=== PATIENT | male | born 1955 | race Caucasian/White ===

== ENCOUNTER 2019-01-11 09:32 | Emergency (ER) | payer OTHER ==
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
[2019-01-11 11:19] VITALS: BP 179/77; TEMP 98.3; O2SAT 100
== END 2019-01-11 10:54 | disposition home or self-care (01) ==
LOC: ER 09:32
DX: S00.01XA Abrasion of scalp, initial encounter (principal); S00.411A Abrasion of right ear, initial encounter; V43.52XA Car driver injured in collision with other type car in traffic accident, initial encounter; M54.2 Cervicalgia
CPT/HCPCS: 70450; 72125; 99284

== ENCOUNTER 2021-05-22 16:22 | Inpatient (IN) | payer OTHER ==
[2021-05-22] MEDS ORDERED: TETANUS & DIPHTHERIA TOX,ADULT 0.5 ML VIAL ONE (16:39)
[2021-05-22] MEDS ORDERED: BUPIVACAINE 0.5% PF 10 ML VIAL ONE (16:41)
[2021-05-22] MEDS ORDERED: LIDOCAINE 1% 20 ML MDV ONE (16:41)
--- NOTE | 2021-05-22 17:07 | RAD REPORT ---
EXAM DESCRIPTION: RAD - Hand Right 3 View - 05/22/2021 5:00 pm CLINICAL HISTORY: PAIN COMPARISON: No comparisons FINDINGS: Partial amputation of the fourth and fifth digits at the level of the distal phalanges. Th ere is also a fracture at the distal phalanx at the articular surface. No dislocation. No radiopaque foreign bodies . IMPRESSION: Partial amputation of the fourth and fifth distal phalanges. In addition, there is a fra cture at the base of the fifth distal phalanx with intra-articular extension.
[2021-05-22] MEDS ORDERED: CEFAZOLIN SODIUM 1 GM/VIAL ONE (17:38)
[2021-05-22] MEDS ORDERED: ONDANSETRON 4 MG/2 ML VIAL ONE (17:38)
[2021-05-22] MEDS ORDERED: MORPHINE 4 MG/ML SYR ONE (17:38)
[2021-05-22] MEDS ORDERED: NA CHLORIDE 0.9% 100 ML ONE (17:40)
[2021-05-22 17:52] LABS: Absolute Lymphocytes (CBC) 1.4 K/uL (0.7-4.9); Basophils % 0.7 % (0-1.3); Hematocrit 38.9 % (39.6-49.0); Lymphocytes % 14.4 % (15.3-44.8); MPV 9.2 fL (7.6-11.3); RBC Red Blood Cell Count 4.34 M/uL (4.33-5.43)
--- NOTE | 2021-05-22 17:57 | RAD REPORT ---
EXAM DESCRIPTION: RAD - Chest Single View - 05/22/2021 5:49 pm CLINICAL HISTORY: pre-op COMPARISON: CHEST PA AND LAT 2 VIEW dated 09/27/2013 FINDINGS: Lines: None. Lungs: No evidence of edema or pneumonia. Pleural: No significant pleural effusions or pneumothorax. Cardiac: The heart size is within normal limits. Bones: No acute fractures. Other: IMPRESSION: No acute cardiopulmonary disease.
[2021-05-22 18:02] LABS: Potassium 3.6 mmol/L (3.5-5.1)
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
--- NOTE | 2021-05-22 18:25 | EDPHYS ---
Physician Documentation [facility] Name: Wai Montejo Age: 65 yrs Sex: Male : 1955 Arrival Date: 05/22/2021 Time: 16:23 Bed 26 Private MD: Syed Love ED Physician Crhis Bingham HPI: 05/22 16:49 This 65 yrs old Male presents to ER via Ambulatory with complaints of Finger kb Injury. 16:49 The patient has not recently seen a physician. kb 16:49 The patient or guardian reports decreased range of motion, injury, a laceration, kb irregular, pain, swelling, tenderness. The complaints affect the dorsal aspect of distal phalanx of right ring finger, dorsal aspect of middle phalanx of right ring finger, dorsal aspect of distal phalanx of right little finger, palmar aspect of distal phalanx of right little finger, palmar aspect of middle phalanx of right little finger, palmar aspect of distal phalanx of right ring finger and palmar aspect of middle phalanx of right ring finger. Context: The problem was sustained at home, resulted from a crush injury, two pieces of metal. Onset: The symptoms/episode began/occurred just prior to arrival. Modifying factors: The symptoms are alleviated by nothing, the symptoms are aggravated by movement. Associated signs and symptoms: The patient has no apparent associated signs or symptoms. Severity of symptoms: At their worst the symptoms were severe, in the emergency department the symptoms are unchanged. The patient has not experienced similar symptoms in the past. Historical: - Allergies: 16:32 No Known Allergies; ll1 - PMHx: 16:32 Hypertensive disorder; Hypercholesterolemia; ll1 - PSHx: 16:32 None; ll1 - Immunization history:: Client reports having NOT received the Covid vaccine. Last tetanus immunization: unknown. - Social history:: Smoking status: Patient denies any tobacco usage or history of. ROS: 16:48 Constitutional: Negative for fever, chills, and weight loss. kb 16:48 MS/extremity: Positive for injury or acute deformity, decreased range of motion, ecchymosis, laceration, pain, swelling, of the right ring finger and right little finger. 16:48 All other systems are negative. Exam: 18:25 Constitutional: This is a well developed, well nourished patient who is awake, alert, kb and in no acute distress. Head/Face: Normocephalic, atraumatic. ENT: Moist Mucous membranes Respiratory: Respirations even and unlabored. No increased work of breathing, no retractions or nasal flaring. Neuro: Awake and alert, GCS 15, oriented to person, place, time, and situation. Moves all extremities. Normal gait. Psych: Awake, alert, with orientation to person, place and time. Behavior, mood, and affect are within normal limits. 18:25 Musculoskeletal/extremity: Extremities: grossly normal except: noted in the dorsal aspect of distal phalanx of right ring finger, dorsal aspect of distal phalanx of right little finger and palmar aspect of distal phalanx of right ring finger: decreased ROM, laceration, pain, swelling, tenderness, ROM: limited active range of motion, Circulation is intact in all extremities. Sensation intact. 18:25 Skin: injury, laceration(s), the wound is approximately 4 cm(s), of the dorsal aspect of distal phalanx of right ring finger and palmar aspect of distal phalanx of right ring finger, the second wound is approximately 2 cm(s), of the dorsal aspect of distal phalanx of right ring finger, that can be described as clean, no foreign body, irregular, with mild bleeding. Vital Signs: 16:33 BP 147 / 71; Pulse 66; Resp 17; Temp 98.4; Pulse Ox 97% ; Weight 123.38 kg; Height 6 ll1 ft. 0 in. (182.88 cm); Pain 10/10; 17:51 BP 130 / 60; Pulse 79; Resp 16; Pulse Ox 97% ; jh5 16:33 Body Mass Index 36.89 (123.38 kg, 182.88 cm) ll1 Procedures: 16:47 Nerve block: (digital) of palmar aspect of proximal phalanx of right ring finger kb Medication: Lidocaine 1% without epinephrine Marcaine 0.5%, Amount: 5 mls were injected, Effect: the patient has resolution of the pain, Set up for procedure. Performed by Mary IVAN Patient tolerated well. 16:47 Nerve block: (digital) of palmar aspect of proximal phalanx of right little finger kb Medication: Lidocaine 1% without epinephrine Marcaine 0.5%, Amount: 5 mls were injected, Effect: the patient has resolution of the pain, Set up for procedure. Performed by Mary IVAN Patient tolerated well. Laceration: 20:01 Wound Repair of 4cm ( 1.6in ) subcutaneous laceration to dorsal aspect of distal kb phalanx of right ring finger and palmar aspect of distal phalanx of right ring finger. Irregularly shaped.. Distal neuro/vascular/tendon intact. Anesthesia: Digital block administered with 1% lidocaine. Skin closed with 6 4-0 Prolene using simple sutures and sterile technique. Patient tolerated well. MDM: 16:26 Patient medically screened. kb 16:48 Data reviewed: vital signs, nurses notes. Data interpreted: Pulse oximetry: on room air kb is 97 %. Interpretation: normal. 18:22 Physician consultation: Wai Moser MD was contacted at 17:15, regarding admission, kb to the medical/surgical unit. patient's condition, and will see patient in inpatient room, tomorrow. 18:23 Counseling: I had a detailed discussion with the patient and/or guardian regarding: the kb historical points, exam findings, and any diagnostic results supporting the discharge/admit diagnosis, radiology results, the need for further work-up and treatment in the hospital. Physician consultation: Chandu NICOLE was contacted at 18:24, regarding admission, to the medical/surgical unit. patient's condition, and will see patient in ED, shortly. 05/22 17:17 Order name: CBC with Diff; Complete Time: 18:00 kb 05/22 17:17 Order name: Basic Metabolic Panel; Complete Time: 18:04 kb 05/22 18:56 Order name: COVID-19 SARS RT PCR (Document "Date of Onset" if Symptomatic); Complete bd Time: 20:39 05/23 06:41 Order name: CBC with Automated Diff EDMS 05/23 07:18 Order name: Comprehensive Metabolic Panel EDMS 05/23 07:18 Order name: Phosphorus EDMS 05/23 07:18 Order name: Lipid Profile EDMS 05/23 07:18 Order name: T4 Free EDMS 05/23 07:18 Order name: Magnesium EDMS 05/23 07:18 Order name: Thyroid Stimulating Hormone EDMS 05/23 07:18 Order name: Transferrin Sat/Iron Binding EDMS 05/23 07:18 Order name: Ferritin EDMS 05/23 07:18 Order name: Folic Acid, (Folate) EDDE 05/23 07:18 Order name: Vitamin B12 Level [facility] 05/22 16:34 Order name: Hand Right 3 View XRAY; Complete Time: 17:09 kb 05/22 17:17 Order name: IV Start; Complete Time: 17:36 kb 05/22 17:17 Order name: EKG; Complete Time: 17:18 kb 05/22 17:17 Order name: EKG - Nurse/Tech; Complete Time: 18:00 kb 05/22 17:17 Order name: Chest Single View XRAY; Complete Time: 18:00 kb 05/22 18:43 Order name: CONS Physician Consult; Complete Time: 19:52 EDDE 05/22 18:45 Order name: Dressing - Wound; Complete Time: 19:51 kb 05/22 18:45 Order name: Gloves, Sterile; Complete Time: 19:52 kb 05/22 18:45 Order name: Prolene, Sutures; Complete Time: 19:52 kb 05/22 18:45 Order name: Setup Suture Tray; Complete Time: 19:52 kb Administered Medications: 16:43 Drug: Tetanus-Diphtheria Toxoid Adult 0.5 ml {Assisted Living Manager: flatev. Exp: jh5 11/28/2022. Lot #: [id number]. } Route: IM; Site: left deltoid; 16:43 Drug: Marcaine (bupivacaine) (0.5 %) 1 vials Volume: 10 ml; Route: Infiltration; 5 16:43 Drug: Lidocaine (1 %) 1 vials Volume: 20 ml; Route: Infiltration; 5 17:43 Drug: Ancef (cefazolin) 1 grams Route: IVPB; Site: left antecubital; 5 17:43 Drug: morphine 4 mg Route: IVP; Site: left antecubital; 5 17:43 Drug: Zofran (Ondansetron) 4 mg Route: IVP; Site: left antecubital; 5 Disposition: 05/23 09:25 Co-signature as Attending Physician, Chris Bingham MD I agree with the assessment and rn plan of care. Attestation: The patient's history, exam findings, diagnostics, and a summary of any interventions or procedures was reviewed in detail with Mary IVAN. Disposition Summary: 05/22/21 18:25 Hospitalization Ordered Hospitalization Status: Observation kb Provider: Brian Hyman Condition: Stable kb Problem: new kb Symptoms: are unchanged kb Bed/Room Type: Standard kb Location: [facility] ER HOLD(05/23/21 09:07) iw Room Assignment: (05/23/21 09:07) iw Diagnosis - Partial amputation of forth and fifth digits on right hand kb Forms: - Medication Reconciliation Form kb - SBAR form kb Signatures: Dispatcher [employer] EDMary Crawford, [place]-Rolo SOLE BUFFER-Tiesha Patino RN RN dw Renita Vera RN RN iw Chris Bingham MD MD rn Garcia, Cindy, RN RN cg Lewis, Lynsay, RN RN [facility] Magdalena Arvizu RN RN jh5 Corrections: (The following items were deleted from the chart) 05/22 16:33 16:32 PMHx: None; ll1 ll1 18:27 16:49 The complaints affect the dorsal aspect of middle phalanx of right middle finger kb and dorsal aspect of distal phalanx of right middle finger and dorsal aspect of middle phalanx of right index finger and dorsal aspect of distal phalanx of right index finger, kb 18:28 16:48 MS/extremity: Positive for injury or acute deformity, decreased range of motion, kb ecchymosis, laceration, pain, swelling, of the dorsal aspect of distal phalanx of right index finger, dorsal aspect of middle phalanx of right index finger, dorsal aspect of distal phalanx of right middle finger and dorsal aspect of middle phalanx of right middle finger, kb 22:45 18:25 Telemetry/MedSurg (observation) kb cg 22:45 18:25 kb cg 05/23 07:33 05/22 22:45 [facility] ER HOLD cg dw 05/23 07:33 05/22 22:45 ERHOLD- cg dw 05/23 09:07 07:33 Telemetry/MedSurg (observation) dw iw : 07:33 221 dw iw
--- NOTE | 2021-05-22 19:40 | P.HP ---
Certification for Inpatient Patient admitted to: Inpatient With expected LOS: <2 Midnights Patient will require the following post-hospital care: None Practitioner: I am a practitioner with admitting privileges, knowledge of patient current condition, hospital course, and medical plan of care. Services: Services provided to patient in accordance with Admission requirements found in Title 42 Section 412.3 of the Code of Federal Regulations Patient History Date of Service: 05/22/21 Primary Care Provider: Kate Reason for admission: partial amputation History of Present Illness: Mr. Montejo is a 65 yo M with HTN and HLD who presents with partial amputations of fourth and fifth distal phalanges. He was unloaidng a bulldozer off of his trailer and when he went to flip the pedestal, his hand got caught underneath the ramp. He initially had severe pain but now after receiving 4mg of morphine, his pain is well controlled. Hand surgery consulted and plans to take to the OR in the morning. Hand XRAY IMPRESSION: Partial amputation of the fourth and fifth distal phalanges. In addition, there is a fracture at the base of the fifth distal phalanx with intra-articular extension. Allergies No Known Allergies Allergy (Verified 09/27/13 14:59) Home Medications: Ciprofloxacin HCl [Cipro] 500 mg PO BID #20 tablet 10/01/13 Hydrocodone 7.5/APAP 325 [[place] 7.5/325 mg*] 1 tab PO Q4H PRN #40 tab 10/01/13 - Past Medical/Surgical History Diabetic: No -: HTN -: HLD -: tonsillectomy -: Left eye sx -: kristin - Family History Family History: Reviewed- Non-Contributory - Social History Smoking Status: Never smoker Alcohol use: Yes CD- Drugs: No Caffeine use: No Place of Residence: Home Review of Systems 10-point ROS is otherwise unremarkable Musculoskeletal: Hand Pain Physical Examination - Physical Exam General: Alert, In no apparent distress HEENT: Atraumatic, PERRLA, Mucous membr. moist/pink, EOMI, Sclerae nonicteric Neck: Supple, 2+ carotid pulse no bruit, No LAD, Without JVD or thyroid abnormality Respiratory: Clear to auscultation bilaterally, Normal air movement Cardiovascular: Regular rate/rhythm, Normal S1 S2 Gastrointestinal: Normal bowel sounds, No tenderness Musculoskeletal: Swelling, Tenderness, Other (crush injury, fourth and fifth digit swolllen, nail bed discolored) Integumentary: Tenderness/swelling Neurological: Normal gait, Normal speech, Normal strength at 5/5 x4 extr, Normal tone, Normal affect Lymphatics: No axilla or inguinal lymphadenopathy - Studies Laboratory Data (last 24 hrs) 05/22/21 17:25: Sodium 141, Potassium 3.6, BUN 19 H, Creatinine 1.07, Glucose 119 H 05/22/21 17:25: WBC 9.40, Hgb 12.8 L, Hct 38.9 L, Plt Count 215 Assessment and Plan - Problems (Diagnosis) (1) Crush injury of hand Current Visit: Yes Status: Acute Qualifiers: Encounter type: initial encounter Laterality: right Qualified Code(s): S67.21XA - Crushing injury of right hand, initial encounter (2) HTN (hypertension) Current Visit: Yes Status: Chronic Qualifiers: Hypertension type: primary hypertension Qualified Code(s): I10 - Essential (primary) hypertension (3) HLD (hyperlipidemia) Current Visit: Yes Status: Chronic Qualifiers: Hyperlipidemia type: unspecified Qualified Code(s): E78.5 - Hyperlipidemia, unspecified - Plan hand surgery consulted NPO after midnight IVF hydration, prophylactic IV antibiotics pain management as needed hydralazine PRN for BP spikes cholesterol stable, continue to monitor SCDs Discharge Plan: Home Plan to discharge in: 48 Hours - Advance Directives Does patient have a Living Will: No Does patient have a Durable POA for Healthcare: No - Code Status/Comfort Care Code Status Assessed: Yes (full code ) Critical Care: No Time Spent Managing Pts Care (In Minutes): 70
[2021-05-22 20:27] VITALS: BMI 36.8
[2021-05-22] MEDS ORDERED: ONDANSETRON 4 MG/2 ML VIAL IV PRN (20:32)
[2021-05-22] MEDS ORDERED: ACETAMINOPHEN 500 MG TAB PO PRN (20:32)
[2021-05-22] MEDS ORDERED: HYDRALAZINE HCL 20 MG/ML VIAL IV PRN (20:32)
[2021-05-22] MEDS ORDERED: MORPHINE 4 MG/ML SYR IV PRN (20:32)
[2021-05-23] MEDS ORDERED: NA CHLORIDE 0.9% 1,000 ML IV SCH
[2021-05-23] MEDS ORDERED: NA CHLORIDE 0.9% 1,000 ML ONE (00:25)
[2021-05-23] MEDS ORDERED: CEFAZOLIN SODIUM 1 GM/VIAL ONE (00:25)
[2021-05-23] MEDS ORDERED: NA CHLORIDE 0.9% 100 ML ONE (00:25)
[2021-05-23] MEDS ORDERED: CEFAZOLIN/NS 1gm 1 GM/50 ML BAG IVPB SCH (02:00)
[2021-05-23] MEDS ORDERED: MORPHINE 4 MG/ML SYR ONE (04:41)
[2021-05-23 06:40] LABS: Absolute Lymphocytes (CBC) 1.8 K/uL (0.7-4.9); Basophils % 0.6 % (0-1.3); Hematocrit 38.2 % (39.6-49.0); Lymphocytes % 21.6 % (15.3-44.8); MPV 9.3 fL (7.6-11.3); RBC Red Blood Cell Count 4.27 M/uL (4.33-5.43)
[2021-05-23 07:18] LABS: ALT/SGPT 51 U/L (12-78); AST/SGOT 24 U/L (15-37); Albumin 3.2 g/dL (3.4-5.0); Alkaline Phosphatase 103 U/L (45-117); BUN Blood Urea Nitrogen 15 mg/dL (7-18); Bicarbonate 26 mmol/L (21-32); Bilirubin Total 0.5 mg/dL (0.2-1.0); Ferritin 400.1 ng/mL (26-388); Folic Acid, (Folate) 9.7 ng/mL (3.1-17.5); Glucose Level 96 mg/dL (74-106); HDL Cholesterol 27 mg/dL (40-60); LDL Cholesterol, Calculated 53 (<130); Magnesium 2.1 mg/dL (1.8-2.4); Phosphorus 3.1 mg/dL (2.5-4.9); Potassium 3.7 mmol/L (3.5-5.1); Protein, Total 6.3 g/dL (6.4-8.2); Sodium Level 141 mmol/L (136-145); Transferrin 210 mg/dL (200-360)
[2021-05-23] MEDS ORDERED: LIDOCAINE 1% MPF 5 ML VIAL ONE ×2 (07:47→08:20)
[2021-05-23] MEDS ORDERED: NS 0.9% VIAL 0 ML ONE (07:47)
[2021-05-23] MEDS ORDERED: dexAMETHasone 10 MG/ML VIAL ONE ×3 (07:48→08:56)
[2021-05-23] MEDS ORDERED: MIDAZOLAM HCL 2 MG/2 ML INJ ONE ×2 (07:48→08:39)
[2021-05-23] MEDS ORDERED: ROPLVACAINE HCL 0 ML ONE (07:48)
[2021-05-23] MEDS ORDERED: FENTANYL CITR 100 MCG/2 ML ONE ×2 (07:48→08:38)
[2021-05-23] MEDS ORDERED: CEFAZOLIN/NS 1gm 1 GM/50 ML BAG ONE (08:18)
[2021-05-23] MEDS ORDERED: BUPIVACAINE 0.5% PF 10 ML VIAL ONE (08:21)
[2021-05-23] MEDS ORDERED: propofoL 200 MG/20 ML VIAL IV ONE (08:38)
[2021-05-23] MEDS ORDERED: LIDOCAINE 2% MPF 5 ML VIAL ONE (08:38)
[2021-05-23] MEDS ORDERED: ONDANSETRON 4 MG/2 ML VIAL ONE (08:41)
[2021-05-23] MEDS ORDERED: KETOROLAC 30 MG/ML INJ ONE (08:57)
[2021-05-23] MEDS ORDERED: EPHEDRINE SULF 50 MG/ML VIAL ONE (09:30)
[2021-05-23] MEDS ORDERED: Ringers Lactate 1,000 ML IV ONE (09:49)
--- NOTE | 2021-05-23 10:31 | RAD REPORT ---
EXAM DESCRIPTION: RAD - Hand Right 2 View - 05/23/2021 10:16 am CLINICAL HISTORY: Phalanges fracture FINDINGS: Fluoroscopy time 0.1 minute. Three fluoroscopic spot images obtained. Pins have been place d into the fourth and fifth phalanges Surgery performed by Dr. Moser
--- NOTE | 2021-05-23 11:45 | OP ---
Surgeon: Wai Moser MD Preoperative Diagnosis: Open fractures of the distal phalanx of the ring and little fingers. Postoperative Diagnosis: Open fractures of the distal phalanx of the ring and little fingers. Procedure Performed: Open reduction and internal fixation of distal phalanx of the right ring finger , arthrodesis of the right little finger, nailbed repair of ring and little. Simple closure, 3 cm of little, 6 cm of ring, splints x2. Anesthesia: General. Procedure In Detail: After satisfactory induction of general anesthesia, right arm was prepped with Betadine scrub and Betadine paint. Dry sterile drapes were applied in the usual manner. The arm was elevated, exsanguinated with an Esmarch, tourniquet inflated to 250 mmHg. Hand was placed on a roll lock table. A periosteal elevator was used to remove the nail plates. The ring finger was approach ed first. After debridement of skin edges, the wounds were then jet lavage and irrigated with 3 L of dilute Betadine solution. The ring finger had a K-wire passed from proximal distal through the frac ture fragment, then distal to proximal, impaled to the distal phalanx and arthrodesis of DIP. C-arm revealed excellent reduction. Attention was then turned to the little finger. The little finger was dislocating volarly. Part of the articular surface was through the fracture. K-wire was placed thr ough the distal phalanx and then used to impale the DIP, reducing in proper anatomic position. The n ailbeds were repaired with 5-0 PDS or horizontal mattress with 5-0 Prolene with pull-ups. Skin was c losed with simple 5-0 Prolene. Dressed with Xeroform, 2-inch Carolin, and a little finger splint holdi ng PIP and DIP in extension. The patient tolerated the procedure well and returned to Recovery. GH/MODL Voice ID: [id number] Report ID: [id number]
[2021-05-23] MEDS ORDERED: POTASSIUM CL SA 10 MEQ TAB PO ONE (12:00)
[2021-05-23 12:55] VITALS: BP 138/71; TEMP 97; O2SAT 98
--- NOTE | 2021-05-23 20:10 | P.DS ---
Admission Date: 05/22/21 Discharge Date: 05/23/21 Primary Care Provider: Kate Disposition: ROUTINE DISCHARGE Reason for Admission: partial amputation Brief History of Present Illness: Mr. Montejo is a 65 yo M with HTN and HLD who presented with partial amputations of fourth and fifth distal phalanges. He was unloaidng a bulldozer off of his trailer and when he went to flip the pedestal, his hand got caught underneath the ramp. Hand X-ray showed partial amputation of the fourth and fifth distal phalanges. In addition, a fracture at the base of the fifth distal phalanx with intra-articular extension. Hand surgery consulted and patient admitted for further management. Hospital Course: Patient seen by Dr. Moser who performed open reduction and internal fixation of distal phalanx of the right ring finger, arthrodesis of the right little finger, nailbed repair of ring and little. Simple closure, 3 cm of little, 6 cm of ring, splints x2. Patient discharged to home after surgery by Dr. Moser. Vital Signs/Physical Exam: Temp Pulse Resp BP Pulse Ox 97.0 F 76 18 138/71 96 05/23/21 11:56 05/23/21 11:56 05/23/21 11:56 05/23/21 11:56 05/23/21 07:53 Laboratory Data at Discharge: WBC 8.40 K/uL (4.3-10.9) 05/23/21 06:30 Hgb 12.5 g/dL (13.6-17.9) L 05/23/21 06:30 Hct 38.2 % (39.6-49.0) L 05/23/21 06:30 Plt Count 220 K/uL (152-406) 05/23/21 06:30 Sodium 141 mmol/L (136-145) 05/23/21 06:30 Potassium 3.7 mmol/L (3.5-5.1) 05/23/21 06:30 BUN 15 mg/dL (7-18) 05/23/21 06:30 Creatinine 0.83 mg/dL (0.55-1.3) 05/23/21 06:30 Glucose 96 mg/dL (74-106) 05/23/21 06:30 Phosphorus 3.1 mg/dL (2.5-4.9) 05/23/21 06:30 Magnesium 2.1 mg/dL (1.8-2.4) 05/23/21 06:30 Total Bilirubin 0.5 mg/dL (0.2-1.0) 05/23/21 06:30 AST 24 U/L (15-37) 05/23/21 06:30 ALT 51 U/L (12-78) 05/23/21 06:30 Alkaline Phosphatase 103 U/L (45-117) 05/23/21 06:30 Triglycerides 101 mg/dL (<150) 05/23/21 06:30 Cholesterol 100 mg/dL (<200) 05/23/21 06:30 HDL Cholesterol 27 mg/dL (40-60) L 05/23/21 06:30 Cholesterol/HDL Ratio 3.70 05/23/21 06:30 Home Medications: Ciprofloxacin HCl [Cipro] 500 mg PO BID #20 tablet 10/01/13 Hydrocodone 7.5/APAP 325 [[place] 7.5/325 mg*] 1 tab PO Q4H PRN #40 tab 10/01/13 Followup: Syed Love MD [Primary Care Provider] -
== END 2021-05-23 11:56 | disposition home or self-care (01) | DRG 514 ==
LOC: ER 16:22 → ERHOLD 19:07
PROVIDERS: ADMIT Internal Medicine; ATTEND Internal Medicine
PROC: 0RG Upper Joints, Fusion (ICD-10-PCS; 2021-05-23)
PROC: 0HQQXZZ Repair Finger Nail, External Approach (ICD-10-PCS; 2021-05-23)
PROC: 0PST04Z Reposition Right Finger Phalanx with Internal Fixation Device, Open Approach (ICD-10-PCS; principal; 2021-05-23 14:30)
DX: S62.634B Displaced fracture of distal phalanx of right ring finger, initial encounter for open fracture (principal); S62.636B Displaced fracture of distal phalanx of right little finger, initial encounter for open fracture; W23.0XXA Caught, crushed, jammed, or pinched between moving objects, initial encounter; Y92.9 Unspecified place or not applicable; I10 Essential (primary) hypertension; E78.5 Hyperlipidemia, unspecified; Z20.822 Contact with and (suspected) exposure to COVID-19
CPT/HCPCS: 36415; 64450; 71045; 80048; 80053; 80061; 82607; 82728; 82746; 83540; 83735; 84100; 84439; 84443; 84466; 85025; 90471; 90714; 93005; 94760; 96374; 96375; 99285; J0690; J1100; J2250; J2405; J2704; J2795; J3010; J7030; J7120; U0003

== ENCOUNTER 2021-06-06 09:32 | Day surgery (SDC) | payer OTHER ==
[2021-06-05 16:11] LABS: Urine Appearance CLEAR (Clear); Urine Color YELLOW (Yellow)
[2021-06-05 16:12] LABS: Urine Bilirubin NEGATIVE (Negative); Urine Blood NEGATIVE (Negative); Urine Glucose Trace (Negative); Urine Microscopic Reflex NO UMIC; Urine Protein NEGATIVE (Negative); Urine Specific Gravity >=1.030 (1.005-1.030); Urine pH 5.5 (5.0-7.0)
[2021-06-06] MEDS ORDERED: Ringers Lactate 1,000 ML IV ONE ×2 (09:38→15:12)
[2021-06-06] MEDS ORDERED: CEFAZOLIN/NS 1gm 1 GM/50 ML BAG ONE (09:38)
[2021-06-06] MEDS ORDERED: ACETAMINOPHEN 500 MG TAB ONE (12:49)
[2021-06-06] MEDS ORDERED: CELECOXIB 100 MG CAPSULE ONE (12:49)
[2021-06-06] MEDS ORDERED: LIDOCAINE 2% MPF 5 ML VIAL ONE (13:29)
[2021-06-06] MEDS ORDERED: KETOROLAC 30 MG/ML INJ ONE (13:29)
[2021-06-06] MEDS ORDERED: FENTANYL CITR 100 MCG/2 ML ONE (13:29)
[2021-06-06] MEDS ORDERED: ONDANSETRON 4 MG/2 ML VIAL ONE (13:29)
[2021-06-06] MEDS ORDERED: dexAMETHasone 10 MG/ML VIAL ONE (13:29)
[2021-06-06] MEDS ORDERED: MIDAZOLAM HCL 2 MG/2 ML INJ ONE (13:29)
[2021-06-06] MEDS ORDERED: propofoL 200 MG/20 ML VIAL IV ONE (13:29)
[2021-06-06] MEDS ORDERED: BUPIVACAINE 0.5% PF 10 ML VIAL ONE (13:30)
[2021-06-06 15:06] VITALS: O2SAT 100
[2021-06-06] MEDS ORDERED: CODEINE 30MG/APAP 300MG TAB ONE (15:46)
[2021-06-06 16:52] VITALS: BP 115/60; TEMP 97.6
--- NOTE | 2021-06-06 20:46 | OP ---
Surgeon: Wai Moser MD Preoperative Diagnosis: Gangrene of the right ring finger. Postoperative Diagnosis: Gangrene of the right ring finger. Procedure: Debridement of skin, subcutaneous tissue, bone flap closure. Anesthesia: General. Procedure In Detail: After satisfactory induction of general anesthesia, the right hand was prepped with Betadine scrub, Betadine paint, dry sterile drapes were placed in usual manner. Arm was elevate d, exsanguinated with an Esmarch, tourniquet inflated to 250 mmHg. Hand was placed on Roto Lock tabl e. A scalpel was used to make the incision at the area of dry gangrene . The K-wire had b een previously removed and then the bone was cut with a bone cutter. was still attached p roximally specimen and then was filed. Wound was irrigated with Betadine solution and the n the flap of bone advanced and closed with 4-0 Prolene simple sutures. Dressed with Xeroform, 2 inc h Carolin. The patient tolerated procedure well and returned to Recovery. GH/MODL Voice ID: [id number] Report ID: [id number]
== END 2021-06-06 16:15 | disposition home or self-care (01) ==
LOC: OR 09:32
PROVIDERS: ATTEND Specialist
PROC: 0PBT0ZZ Excision of Right Finger Phalanx, Open Approach (ICD-10-PCS; 2021-06-06)
PROC: 0HXFXZZ Transfer Right Hand Skin, External Approach (ICD-10-PCS; 2021-06-06)
PROC: 0HTQXZZ Resection of Finger Nail, External Approach (ICD-10-PCS; principal; 2021-06-06 11:15)
DX: I96 Gangrene, not elsewhere classified (principal); Z20.822 Contact with and (suspected) exposure to COVID-19
CPT/HCPCS: 88305; 88311; 81003; 26236; 14040; U0003; J2704; J2250; J3010; J1100; J0690; J7120 ×2; J2405

== ENCOUNTER 2021-06-25 07:46 | Day surgery (SDC) | payer OTHER ==
[2021-06-24 12:13] LABS: Absolute Lymphocytes (CBC) 1.7 K/uL (0.7-4.9); Basophils % 0.7 % (0-1.3); Hematocrit 40.1 % (39.6-49.0); Lymphocytes % 25.8 % (15.3-44.8); MPV 9.7 fL (7.6-11.3); RBC Red Blood Cell Count 4.51 M/uL (4.33-5.43)
[2021-06-25] MEDS ORDERED: Ringers Lactate 1,000 ML IV ONE ×2 (08:02→10:07)
[2021-06-25] MEDS ORDERED: CEFAZOLIN/NS 1gm 1 GM/50 ML BAG ONE (08:35)
[2021-06-25] MEDS ORDERED: MINERAL OIL, LITE 10 ML VIAL ONE (09:00)
[2021-06-25] MEDS ORDERED: LIDOCAINE 1% MPF 5 ML VIAL ONE (09:00)
[2021-06-25] MEDS ORDERED: MIDAZOLAM HCL 2 MG/2 ML INJ ONE (09:00)
[2021-06-25] MEDS ORDERED: propofoL 200 MG/20 ML VIAL IV ONE (09:00)
[2021-06-25] MEDS ORDERED: FENTANYL CITR 100 MCG/2 ML ONE (09:00)
[2021-06-25] MEDS ORDERED: KETOROLAC 30 MG/ML INJ ONE (09:32)
[2021-06-25] MEDS ORDERED: ONDANSETRON 4 MG/2 ML VIAL ONE (09:33)
[2021-06-25] MEDS: HYDROMORPHONE HCL 1 MG/ML INJ ONE ×2 (10:01→10:06)
[2021-06-25] MEDS ORDERED: GENTAMICIN 100 MG/100 ML BAG 200 ML IV ONE (10:07)
--- NOTE | 2021-06-25 10:36 | OP ---
Surgeon: Wai Moser MD Preoperative Diagnosis: Open wound, right ring finger. Postoperative Diagnosis: Open wound, right ring finger. Procedure: Debridement of skin and subcutaneous tissue, bone and flap closure . Anesthesia: General. Procedure In Detail: After satisfactory induction of general anesthesia, right hand was prepped with Betadine scrub, Betadine paint, dry sterile drapes applied in usual manner. Sutures removed. The d ry gangrenous area was excised with a scalpel. Flaps undermined and with a rongeur. The wound was then jet lavage irrigated with 1 L of dilute Betadine solution. The flap was advanced and closed with 4-0 Prolene simple sutures. Dressed with Xeroform, 2-inch Carolin. The patient tolerated procedure well and returned to recovery. JEANETH/LOC Voice ID: [id number] Report ID: [id number]
[2021-06-25 11:22] VITALS: BP 125/64; TEMP 97.6; O2SAT 99
== END 2021-06-25 11:20 | disposition home or self-care (01) ==
LOC: OR 07:46
PROVIDERS: ATTEND Specialist
PROC: 0HXFXZZ Transfer Right Hand Skin, External Approach (ICD-10-PCS; 2021-06-25)
PROC: 0PBT0ZZ Excision of Right Finger Phalanx, Open Approach (ICD-10-PCS; 2021-06-25)
PROC: 0PDT0ZZ Extraction of Right Finger Phalanx, Open Approach (ICD-10-PCS; principal; 2021-06-25 09:00)
DX: S61.204A Unspecified open wound of right ring finger without damage to nail, initial encounter (principal); Z20.822 Contact with and (suspected) exposure to COVID-19
CPT/HCPCS: 85025; 36415; 88304; 11044; 14040; U0003; J2704; J3010; J1170; J0690; J1580; J7120 ×2; J2405; J2250